=== PATIENT | male | born 1950 | race Caucasian/White ===

== ENCOUNTER 2020-03-30 15:36 | Outpatient (CLI) | payer MEDICARE | END 2020-03-30 15:37 | disposition EMS.NT | LOC: EMS 15:36 | PROVIDERS: ATTEND Surgery | DX: S99.912A Unspecified injury of left ankle, initial encounter (principal); X50.0XXA Overexertion from strenuous movement or load, initial encounter; Y93.01 Activity, walking, marching and hiking; Y92.838 Other recreation area as the place of occurrence of the external cause ==

== ENCOUNTER 2020-03-30 16:27 | Emergency (ER) | payer MEDICARE ==
[2020-03-30 16:34] VITALS: BP 165/78
--- NOTE | 2020-03-30 16:52 | ED Physician Documentation ---
PD HPI LOWER EXT INJURY - Stated complaint Stated Complaint: LFT ANKLE INJ - Chief complaint Chief Complaint: Trauma Ext - History obtained from History obtained from: Patient - History of Present Illness PD HPI LOW EXT INJURY LOCATION: Left, Lower leg, Ankle Type of injury: Fall, Twist Where injury occurred: Other (hiking trail) Timing - onset: How many hours ago (3) Timing - details: Abrupt onset Worsened by: Moving, Palpating Associated symptoms: Swelling. No: Weakness, Numbness - Additional information Additional information: 69-year-old male comes to the emergency department with chief complaint of a left ankle and leg pain. He reports that he was hiking when his foot fell into a hole and he felt a pop in the lower leg. Unable to bear weight. No history of previous injury PD PAST MEDICAL HISTORY - Present Medications Home Medications: Ambulatory Orders Medication Instructions Recorded Confirmed Bp Medication 03/30/20 Cholesterol Medication 03/30/20 Hydrocodone/Acetaminophen 1 each PO Q6H PRN #14 tablet 03/30/20 [Hydrocodon-Acetaminophen 5-325] - Allergies Allergies/Adverse Reactions: Allergies Allergy/AdvReac Type Severity Reaction Status Date / Time Sulfa (Sulfonamide Allergy Rash Verified 03/30/20 16:34 Antibiotics) PD ED PE NORMAL - General General: Alert and oriented X 3, No acute distress, Well developed/nourished - HEENT HEENT: Atraumatic, EOMI - Cardiac Cardiac: RRR, No murmur - Respiratory Respiratory: No respiratory distress - Abdomen Abdomen: Normal bowel sounds, Soft - Extremities Extremities: No deformity, Other (2+ distal DP pulse). No: No tenderness to palpate (Swelling of the left lower lateral ankle superior to the malleolus. There is some crepitus noted. No tenderness of the foot, base of the fifth metatarsal or medial ankle.) - Neuro Neuro: Alert and oriented X 3, field service consultant 2-12 intact, No motor deficit Results - Vitals Vitals: Vital Signs - 24 hr 03/30/20 16:30 Temperature 36 C L Heart Rate 72 Respiratory 18 Rate Blood Pressure 165/78 H O2 Saturation 99 Oxygen O2 Source Room air - Rads (name of study) left ankle Radiology: EMP read indepedently (Left fibula fracture) PD MEDICAL DECISION MAKING - ED course Complexity details: re-evaluated patient, d/w patient, d/w family ED course: 69-year-old male here with acute left ankle lower leg pain following a twisting injury while hiking this afternoon. X-ray shows a left fibula - Extremity was placed in a 3 sided short leg posterior splint. Distal perfusion remains intact following splinting. - Patient given crutches to aid in ambulation. - Patient lives in [place] and a number of 2 orthopedic providers to call for follow-up. - We discussed higher risk of injury and concerns of clot formation in the setting of a splint placement. He is to return for fevers, difficulty breathing, foot numbness, or emergent concerns. Departure - Departure Disposition: 01 Home, Self Care Clinical Impression: Fibula fracture Qualifiers: Encounter type: initial encounter Fibula location: shaft Fracture type: closed Fracture morphology: transverse Fracture alignment: nondisplaced Laterality: left Qualified Code(s): S82.425A - Nondisplaced transverse fracture of shaft of left fibula, initial encounter for closed fracture Condition: Stable Instructions: ED Fx Ankle Lateral Malleolus Prescriptions: Hydrocodone/Acetaminophen [Hydrocodon-Acetaminophen 5-325] 1 each PO Q6H PRN #14 tablet PRN Reason: pain Comments: William I am sorry to tell you that you do have a left fibula fracture. I have placed you in a splint. The splint must remain dry. If it gets wet please return to any emergency department to have it replaced. I would like you to call any orthopedic provider for follow-up of this fracture to be seen within the next week to 10 days. Please elevate your foot at night this will help with swelling and pain. I have prescribed a limited number of [place]. These are to be used for severe pain only. Do not drive if taking [place] it may make you sleepy. Please schedule close follow-up with your primary care doctor for longer-term evaluation and pain management. If you develop any difficulty breathing, have a cold foot, have numbness or tingling in the foot, then please return to the emergency department for reevaluation
--- NOTE | 2020-03-30 17:05 | XRAY Report ---
PROCEDURE: Ankle 3 View LT INDICATIONS: Trauma TECHNIQUE: 3 views of the ankle were acquired. COMPARISON: None FINDINGS: Bones: Acute oblique fracture involving distal fibular shaft 5.3 cm proximal to tibiotalar joint is s een. Minimal lateral and posterior displacement at fracture site is seen. There is cortical irregular ity involving posterior malleolus concerning for a subtle nondisplaced fracture. Widening of both med ial and lateral ankle mortise is seen. No suspicious bony lesions. Soft tissues: No tibiotalar joint effusion. Achilles tendon appears normal. Diffuse soft tissue sw elling around ankle joint is seen. IMPRESSION: 1. Minimally displaced oblique fracture involving distal fibular shaft as above. Subtle nondisplaced posterior malleolus fracture. 2. Widening of both medial and lateral ankle mortise concerning for ankle ligamentous injury. Diffuse soft tissue swelling around ankle joint. Reviewed by: Demetrio Santos MD on 03/30/2020 5:03 PM PDT Approved by: Demetrio Santos MD on 03/30/2020 5:03 PM PDT Station ID: [id number]
[2020-03-30] MEDS ORDERED: HYDROcod/ACETAM 5/325 MG TABLET PO STA (17:34)
== END 2020-03-30 17:41 | disposition home or self-care (01) ==
LOC: ED 16:27
DX: S82.425A Nondisplaced transverse fracture of shaft of left fibula, initial encounter for closed fracture (principal); S82.892A Other fracture of left lower leg, initial encounter for closed fracture; X50.1XXA Overexertion from prolonged static or awkward postures, initial encounter; Y93.01 Activity, walking, marching and hiking; Y92.821 Forest as the place of occurrence of the external cause
CPT/HCPCS: 73610; 99281; 99283; A9270